=== PATIENT | female | born 1955 | race Caucasian/White ===

== ENCOUNTER → 2016-10-01 | Outpatient (CLI) | payer BC ==
[2013-10-14 22:02] VITALS: BP 122/71
[2016-10-01 09:22] LABS: ALANINE AMINOTRANSFERASE 34 Units/L (12-78); ALBUMIN 4.6 g/dL (3.4-5.0); ALKALINE PHOSPHATASE 68 Units/L (46-116); ASPARTATE AMINO TRANSFERASE 23 Units/L (15-37); BLOOD UREA NITROGEN 16 mg/dL (7-18); CALCIUM 9.5 mg/dL (8.5-10.1); CARBON DIOXIDE 28.1 mmol/L (21-32); CHLORIDE 102 mmol/L (98-107); CHOL/HDL RATIO 5.4 (0.0-5.0); CHOLESTEROL 227 mg/dL (0-200); COR NA(FOR HYPERGLY) 139 mmol/L (136-145); CREATININE 1.04 mg/dL (0.55-1.02); GLUCOSE 116 mg/dL (65-99); HDL CHOLESTEROL 42 mg/dL (40-60); SODIUM 139 mmol/L (136-145); TOTAL PROTEIN 8.4 g/dL (6.4-8.2); TRIGLYCERIDES 242 mg/dL (0-150); eGFR BLACK RACES > 60 (>60); eGFR NON BLACK RACES 57 (>60)
[2016-10-01 09:23] LABS: BASOPHILS % (AUTO) 0.4 % (0.2-1.0); EOSINOPHILS # (AUTO) 0.1 x10^3/uL (0.0-0.2); EOSINOPHILS % (AUTO) 1.6 % (0.9-2.9); HEMATOCRIT 41.1 % (36.0-47.0); HEMOGLOBIN 14.2 g/dL (12.0-16.0); LYMPHOCYTES # (AUTO) 1.4 X10^3/uL (1.3-2.9); LYMPHOCYTES % (AUTO) 24.6 % (21.0-51.0); MEAN CORPUSCULAR HGB CONC 34.5 g/dL (33.0-35.0); MEAN CORPUSCULAR VOLUME 92.7 fL (80.0-100.0); MEAN PLATELET VOLUME 8.7 fL (7.4-11.0); MONOCYTES # (AUTO) 0.5 x10^3/uL (0.3-0.8); MONOCYTES % (AUTO) 9.1 % (0.0-13.0); NEUTROPHILS # (AUTO) 3.7 x10^3/uL (2.2-4.8); NEUTROPHILS % (AUTO) 64.3 % (42.0-75.0); PLATELET COUNT 224 X10^3/uL (150.0-450.0); RED BLOOD COUNT 4.43 X10^6/uL (3.5-5.4); RED CELL DISTRIBUTION WIDTH 12.8 % (11.6-16.5); WHITE BLOOD COUNT 5.8 X10^3/uL (3.6-10.0)
== END ==
LOC: LAB 08:26
PROVIDERS: ATTEND Obstetrics & Gynecology Obstetrics
DX: N64.4 Mastodynia (principal); R07.89 Other chest pain; I10 Essential (primary) hypertension; E88.81 Metabolic syndrome and other insulin resistance; R73.01 Impaired fasting glucose; E78.2 Mixed hyperlipidemia
CPT/HCPCS: 36415; 80053; 80061; 83525; 85025

== ENCOUNTER → 2016-10-01 | Outpatient (CLI) | payer SELFPAY ==
[2013-10-14 22:02] VITALS: BP 122/71
--- NOTE | 2016-10-01 12:55 | CT ---
HISTORY: Hypertension. Left chest pain x1 year. Palpitations. Study: Cardiac calcium scoring. Technique: Multiple axial images of the chest were obtained on a [address] from the main pulmonary artery to the base of the heart. Noncontrast evaluation of the heart was performed for calcium scoring with prospective gating. Findings: A total calcium score of 6 is observed which is between the 50th and 75th percentile for f emales between the ages of 60 and 64. This score implies minimal identifiable plaque with very unli sarah, less than 10%, risk of coronary artery disease. LM: 0 LAD: 4 LCX: 0 RCA: 2 Extracardiac findings: No pathologically enlarged lymphadenopathy can be observed. No significant pericardial effusion can be identified. The visualized portions of the lung parenchyma are unremarkable. No lytic or blast ic lesions can be identified within the visualized bony thorax. IMPRESSION: A total calcium score of 6 is observed which is between the 50th and 75th percentile for females bet ween the ages of 60 and 64. This score implies minimal identifiable plaque with very unlikely, less than 10%, risk of coronary artery disease. Reported By:
== END ==
LOC: RAD 08:33
PROVIDERS: ATTEND Obstetrics & Gynecology Obstetrics
DX: Z13.6 Encounter for screening for cardiovascular disorders (principal)

== ENCOUNTER → 2016-10-08 | Outpatient (CLI) | payer BC ==
[2013-10-14 22:02] VITALS: BP 122/71
--- NOTE | 2016-10-08 14:09 | MG ---
HISTORY: Left-sided chest wall pain radiating to left shoulder with chronic diffuse fibrocystic michelle ast pain Bilateral digital diagnostic mammography with CAD. Comparison: Multiple priors dating back to August 28, 2013 FINDINGS: Bilateral CC and MLO projections of the right and left breast were obtained. Heterogeneously dense fibroglandular tissue is seen to be present without significant interval change. No suspicious arch itectural distortion, mass or clustered microcalcifications can be observed to suggest malignancy. No skin thickening or nipple retraction is appreciated. No pathological lymphadenopathy can be ya ntified. Benign-appearing calcifications are noted within the right and left breast. IMPRESSION: NO RADIOGRAPHIC EVIDENCE OF MALIGNANCY. ACR CATEGORY 2 - benign findings. FOLLOW-UP EXAM 1 YEAR. Diagnostic CAD was utilized and reviewed. * 0 (ZERO) - ASSESSMENT INCOMPLETE; ADDITIONAL IMAGING IS NEEDED. * 1/1 (ONE) - NEGATIVE. * 2/II (TWO) - BENIGN FINDINGS. * 3/III (THREE) - PROBABLY BENIGN FINDING; SHORT INTERVAL FOLLOW-UP SUGGESTED. * 4/IV (FOUR) - SUSPICIOUS ABNORMALITY; BIOPSY SHOULD BE CONSIDERED. * 5/V (FIVE) - HIGHLY SUSPICIOUS OF MALIGNANCY; BIOPSY SHOULD BE PERFORMED. A NEGATIVE X-RAY REPORT SHOULD NOT DELAY BIOPSY IF A DOMINANT OR CLINICALLY SUSPICIOUS MASS IS PRESENT; 4 TO 8 PERCENT OF CANCERS ARE NOT IDENTIFIED BY X-RAY. A NEG ATIVE REPORT MAY REINFORCE THE CLINICAL IMPRESSION. ADENOSIS AND DENSE BREASTS MAY OBSCURE AN UNDER LYING NEOPLASM. Reported By:
== END ==
LOC: RAD 13:23
PROVIDERS: ATTEND Obstetrics & Gynecology Obstetrics
DX: N64.4 Mastodynia (principal)
CPT/HCPCS: 77066